=== PATIENT | male | born 2000 | race Caucasian/White ===

== ENCOUNTER 2021-01-12 14:44 | Emergency (ER) | payer OTHER, SELFPAY ==
--- NOTE | 2021-01-12 14:50 | ED.UPPEXIN ---
HPI - Extremity Injury (Upper) General Chief Complaint: Extremity Injury, Upper Stated Complaint: right forearm/wrist pain Time Seen by Provider: 01/12/21 15:26 Source: patient and RN notes reviewed Mode of arrival: ambulatory Limitations: no limitations History of Present Illness HPI narrative: 20-year-old male presents concern for right forearm pain. Reports he was seen in urgent care approximately 8 days ago for the symptoms, was diagnosed with cellulitis and was given Bactrim. He reports he has been taking the antibiotic as directed with no improvement to his symptoms, including pain, swelling. He reports symptoms are exacerbated by using the fingers, bending the wrist. 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 Reports those motions aggravate the pain. 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 He reports a grinding feeling at the site of the pain with bending of the wrist and use of the digits. He denies injury or trauma to the area. He denies fever, body aches, chills, sweats. MD complaint: injury to: right, forearm and wrist Related Data Allergies Allergy/AdvReac Type Severity Reaction Status Date / Time No Known Allergies Allergy Verified 01/12/21 14:53 Review of Systems Review of Systems: CONSTITUTIONAL: Denies malaise, chills, sweats, or fever. SKIN: Denies rash or itching. Denies open wounds, skin warmth, redness MUSCULOSKELETAL: Reports right wrist and forearm pain, tenderness, exacerbated by wrist flexion and extension, digit flexion extension, radiating to the right elbow. NEUROLOGIC: Denies numbness, weakness All systems reviewed & are unremarkable except as noted in HPI and below PMFSH Comments At time of signature, agree with nursing past medical, surgical, social and family history. There is no relevant family history pertinent to the presenting complaint Exam Narrative: GENERAL: Well-appearing, well-nourished, and in no acute distress. HEAD: Normocephalic, atraumatic. EYES: PERRLA, conjunctivae clear NECK: Supple. CHEST: Speaks in full sentences. No respiratory distress. HEART: Regular rate and rhythm. Normal and equal peripheral pulses. EXTREMITIES: Right wrist, hand, digits have normal strength and sensation, normal range of motion. Very mild forearm edema noted to the anterior medial forearm without erythema or ecchymosis. Normal sensation with sensitivity to light touch and pain. No point tenderness. No open wounds, no skin tenting, no devitalized tissue or atrophy, no trophic changes, no obvious deformity, alignment normal, nearby joints and structures intact. Distal pulses palpable and equal bilaterally, skin warm, dry, pink. Capillary refill less than 3 seconds. SKIN: Warm, dry, no rash. No forearm warmth, significant edema, induration noted NEURO: Alert and oriented x3. PSYCH: Normal mood and affect Course Course Emergency Course: Patient is aware of diagnosis, understands and agrees to treatment plan. Anticipatory guidance given. Patient agrees to follow-up as directed and is aware of reasons to seek care at the emergency department. Portions of this record may have been created with voice recognition software Vital Signs Vital signs: Reviewed. MDM - Extremity Injury (Upper) MDM Narrative Medical decision making narrative: Exam findings show no acute concerns or changes; patient is non-toxic appearing and is in no distress. Patient is appropriate for outpatient treatment and follow-up. Differential Diagnosis Differential diagnosis: Likely sprain and strain of wrist and other (Cellulitis, musculoskeletal injury, tendinitis) Critical Care Time Critical Care Time Critical Care Time: No Discharge Plan Discharge Clinical Impression: Left wrist tendonitis Patient Disposition: Home, Self-Care Condition: Stable Instructions: Tendinitis (ED) Additional Instructions: You may stop taking the Bactrim. Avoid activities th
[2021-01-12 14:59] VITALS: BP 109/66; PULSE 66; RESP 16; TEMP 37; O2SAT 100
[2021-01-12 15:02] VITALS: BP 109/66; PULSE 66; RESP 16; TEMP 37; O2SAT 100
== END 2021-01-12 15:38 | disposition home or self-care (01) ==
PROVIDERS: Emergency Provider Nurse Practitioner
DX: M77.8 Other enthesopathies, not elsewhere classified (principal)
CPT/HCPCS: 99203; G0463